=== PATIENT | female | born 1955 | race Caucasian/White ===

== ENCOUNTER 2022-08-31 12:22 | Inpatient (IN) ==
[2022-08-31] MEDS ORDERED: GuaiFENesin/Codeine Oral Soln 5 ML UDC PO PRN (17:51)
[2022-08-31] MEDS ORDERED: Nitroglycerin 0.4 MG TAB.SUBL SL PRN (17:51)
[2022-08-31 20:25] VITALS: BP 133/72; PULSE 80; TEMP 97.6
[2022-08-31 20:48] VITALS: RESP 18; O2SAT 96
[2022-08-31] MEDS ORDERED: NON-FORMULARY MEDICATION 1 EACH EACH (Mometasone/Formoterol [Dulera 200 Mcg-5 Mcg Inhaler] IH SCH (21:00)
[2022-08-31] MEDS ORDERED: Gabapentin 300 MG CAPSULE PO SCH (21:00)
[2022-08-31] MEDS ORDERED: Sennosides/Docusate Sodium TABLET PO SCH (21:00)
[2022-08-31] MEDS ORDERED: Budesonide/Formoterol 160/4.5 1 PUFF INH IH SCH (22:00)
[2022-09-01] MEDS ORDERED: *HR* Enoxaparin 40 MG/0.4 ML SYRINGE SQ SCH (07:00)
[2022-09-01] MEDS ORDERED: Metoprolol XL (24 HR) Succ 50 MG TAB.ER.24H PO SCH (09:00)
[2022-09-01] MEDS ORDERED: Aspirin Enteric Coated 81 MG Tablet PO SCH (09:00)
[2022-09-01] MEDS ORDERED: *HR* Metformin 500 MG TABLET PO SCH (09:00)
[2022-09-01] MEDS ORDERED: Nicotine 21 MG PATCH.TD24 TD SCH (09:00)
[2022-09-01] MEDS ORDERED: Furosemide 20 MG TABLET PO SCH (09:00)
[2022-09-01] MEDS ORDERED: Budesonide/Formoterol 80/4.5 1 PUFF INH IH SCH (10:00)
== END 2022-08-31 23:59 | disposition other institution (70) | DRG 189 ==
LOC: INPGRE 19:59
PROVIDERS: ADMIT Family Medicine; ATTEND Family Medicine